=== PATIENT | female | born 1945 | race Caucasian/White ===

== ENCOUNTER → 2018-06-21 | Outpatient (CLI) | payer MEDICARE | END | disposition home or self-care (01) | LOC: OIH 09:31 | PROVIDERS: ATTEND Orthopaedic Surgery | DX: M12.812 Other specific arthropathies, not elsewhere classified, left shoulder (principal) | CPT/HCPCS: 73221 ==

== ENCOUNTER → 2018-07-08 | Outpatient (CLI) | payer MEDICARE | END | disposition home or self-care (01) | LOC: RAH 12:06 | PROVIDERS: ATTEND Orthopaedic Surgery | DX: M47.22 Other spondylosis with radiculopathy, cervical region (principal); M48.02 Spinal stenosis, cervical region; M50.121 Cervical disc disorder at C4-C5 level with radiculopathy | CPT/HCPCS: 72141 ==

== ENCOUNTER → 2018-12-14 | Outpatient (CLI) | payer MEDICARE | END | disposition home or self-care (01) | LOC: RAH 07:15 | PROVIDERS: ATTEND Family Medicine | DX: R92.8 Other abnormal and inconclusive findings on diagnostic imaging of breast (principal); R92.2 Inconclusive mammogram | CPT/HCPCS: 76641; 77065 ==

== ENCOUNTER 2019-01-28 08:06 | Day surgery (SDC) | payer MEDICARE ==
[2019-01-27 14:00] VITALS: BP 131/73
[2019-01-27 14:26] LABS: BASOPHILS % (AUTO) 0.6 % (0.0-5.0); HEMATOCRIT 39.6 % (36-48); LYMPHOCYTES % (AUTO) 26.3 % (21.0-51.0); MEAN CORPUSCULAR HEMOGLOBIN 29.2 pg (27.0-33.0); MEAN CORPUSCULAR HGB CONC 33.1 g/dL (32.0-36.0); MEAN CORPUSCULAR VOLUME 88.1 fL (79-99); MONOCYTES % (AUTO) 7.7 % (3.0-13.0); NEUTROPHILS % (AUTO) 64.4 % (40.0-77.0); PLATELET COUNT (AUTO) 256 K/uL (130-400); RED CELL DISTRIBUTION WIDTH 13.3 % (11.0-15.5); WHITE BLOOD COUNT (AUTO) 6.2 K/uL (4.8-10.8)
[2019-01-27 14:36] LABS: CREATININE 0.9 mg/dL (0.5-1.5); POTASSIUM 3.5 mmol/L (3.5-5.1)
[2019-01-28] VITALS (15 sets, daily range): BP systolic 120–136; BP diastolic 55–79
[~2019-01-28] VITALS: Ht 160 cm; Wt 74.3 kg
[~2019-01-28 08:06] MED LIST: LOSA1TAB54 PO
[2019-01-28] MEDS ORDERED: EPINEPHRINE 1 MG/ML 30ML VIAL IJ ONE (09:49)
[2019-01-28] MEDS ORDERED: PROPOFOL 10 MG/ML 20ML VIAL IV ONE (09:56)
[2019-01-28] MEDS ORDERED: MIDAZOLAM HCL 1 MG/ML 2ML VIAL ONE (09:56)
[2019-01-28] MEDS ORDERED: ROCURONIUM 10MG/1ML SYR 10 MG/ML ML ONE ×2 (09:56→10:46)
[2019-01-28] MEDS ORDERED: LIDOCAINE PF 2% 5ML ABBOJECT ONE (09:56)
[2019-01-28] MEDS ORDERED: NEOSTIGMINE 5MG/5ML SYR IV ONE (09:56)
[2019-01-28] MEDS ORDERED: GLYCOPYRROLATE 1 MG/5 ML SYRINGE ONE (09:56)
[2019-01-28] MEDS ORDERED: FENTANYL CITRATE PF 50 MCG/1 ML 2ML VIAL ONE (09:57)
[2019-01-28] MEDS ORDERED: CEFAZOLIN SODIUM 1 GM VIAL ONE (10:07)
[2019-01-28] MEDS ORDERED: LACTATED RINGERS 1000ML 1,000 ML IV ONE (10:07)
[2019-01-28] MEDS ORDERED: ROPIVACAINE 0.5% 5MG/ML 30ML IJ ONE (10:08)
[2019-01-28] MEDS ORDERED: DEXAMETHASONE SOD PHOSPHATE 10MG/ML 1ML VIAL ONE (10:47)
[2019-01-28] MEDS ORDERED: ONDANSETRON HCL 4 MG/2 ML VIAL ONE ×3 (10:47→14:22)
[2019-01-28] MEDS ORDERED: EPHEDRINE SULFATE 50 MG/ML AMPULE ONE (12:09)
--- NOTE | 2019-01-28 13:01 | NUR ---
PAIN pt states no pain when resting Addendum: 01/28/19 at 1302 by AYLA CORTEZ RN RN Amended: Links added.
[2019-01-28] MEDS ORDERED: SODIUM CHLORIDE 0.9% 10 ML VIAL ONE (13:25)
[2019-01-28] MEDS ORDERED: CEPH500B PO (13:32)
[2019-01-28] MEDS ORDERED: HYDR-4457 PO (13:32)
[2019-01-28] MEDS ORDERED: NAPR-1192 PO (13:32)
[2019-01-28] MEDS ORDERED: METOCLOPRAMIDE 10 MG/2 ML VIAL ONE (14:04)
--- NOTE | 2019-01-28 14:40 | NUR ---
POST-PROCEDURE RECEIVED FROM RECOVERY VIA STRETCHER S/P LEFT SHOULDER ARTHROSCOPY BY AHSAN BENAVIDES RN. AWAKE IN NO ACUTE DISTRESS. ASSISTED TO RR WITH MINIMAL ASSIST OF 1. CONNECTED TO CONTINUOUS CARDIOPULMONARY MONITORING. DENIES PAIN. ICE PACK APPLIED TO LEFT SHOULDER, DRESSING CD&I, SLING IN PLACE.
--- NOTE | 2019-01-28 14:52 | NUR ---
GI PT VOMITED SMALL AMOUNT OF YELLOW BILE. RECEIVED ZOFRAN X2, REGLAN X1 IN RECOVERY ROOM. ICE CHIPS PROVIDED. WILL CONTINUE TO MONITOR.
[2019-01-28] MEDS ORDERED: PROMETHAZINE HCL 25 MG/ML 1ML AMPULE IM SCH (16:00)
--- NOTE | 2019-01-28 16:35 | NUR ---
LUANA TOLLIVER SLUNK SKIN CURER SPOKE WITH PATIENT.
--- NOTE | 2019-01-28 16:46 | NUR ---
D/C PATIENT LEFT VIA WHEEL CHAIR AND RX SCRIPT GIVEN TO .
== END 2019-01-28 16:50 ==
LOC: DAH 08:06
PROVIDERS: ATTEND Orthopaedic Surgery
DX: M75.122 Complete rotator cuff tear or rupture of left shoulder, not specified as traumatic (principal); M94.212 Chondromalacia, left shoulder; M65.9 Synovitis and tenosynovitis, unspecified; M19.012 Primary osteoarthritis, left shoulder; G89.29 Other chronic pain; I10 Essential (primary) hypertension; I25.10 Atherosclerotic heart disease of native coronary artery without angina pectoris; M47.812 Spondylosis without myelopathy or radiculopathy, cervical region; Z79.899 Other long term (current) drug therapy; Z98.1 Arthrodesis status
CPT/HCPCS: 29820; 29824; 29826; 29827; 36415; 80048; 85025; A4565; A4649 ×5; A4930; A6204; C1713; G0168; J0171; J0690; J1100; J2001; J2250; J2405 ×3; J2550; J2704; J2710; J2765; J2795; J3010; J3490 ×2; J7030; J7120